=== PATIENT | female | born 1955 ===

== ENCOUNTER 2023-07-25 08:45 | Emergency (ER) | payer OTHER ==
[~2023-07-25] VITALS: Ht 157.5 cm; Wt 69.5 kg
[2023-07-25 09:16] VITALS: BP 132/66; PULSE 97; RESP 18; TEMP 98.7; O2SAT 98
[2023-07-25] MEDS ORDERED: IBUP-1456 PO (10:09)
[2023-07-25] MEDS ORDERED: CEPH500C PO (10:09)
== END 2023-07-25 10:31 | disposition home or self-care (01) ==
LOC: ER 08:45
DX: D17.1 Benign lipomatous neoplasm of skin and subcutaneous tissue of trunk (principal); M62.830 Muscle spasm of back
CPT/HCPCS: 72070; 93005